=== PATIENT | male | born 1975 | race Caucasian/White ===

== ENCOUNTER 2019-03-23 06:04 | Emergency (ER) | payer OTHER ==
[~2019-03-23] VITALS: Ht 162.6 cm; Wt 68.0 kg
[2019-03-23 07:08] VITALS: BP 143/97
== END 2019-03-23 08:08 | disposition home or self-care (01) ==
LOC: ER 06:04
DX: J06.9 Acute upper respiratory infection, unspecified (principal); F17.210 Nicotine dependence, cigarettes, uncomplicated